=== PATIENT | male | born 1990 | race Caucasian/White ===

== ENCOUNTER 2017-09-17 23:34 | Emergency (ER) | payer MEDICAID ==
[2017-09-18 00:37] LABS: ANION GAP 12.4 mmol/L (8-16); APPEARANCE CLEAR (CLEAR); BILIRUBIN NEGATIVE (NEGATIVE); BILIRUBIN - TOTAL 0.19 mg/dL (0.2-1.3); CALCIUM 9.5 mg/dL (8.5-10.1); CARBON DIOXIDE 30.3 mmol/L (21.0-32.0); COLOR YELLOW (YELLOW); CREATININE - SERUM 1.3 mg/dL (0.6-1.3); GLUCOSE 1000 mg/dL (NEGATIVE); KETONE SMALL mg/dL (NEGATIVE); NITRITE NEGATIVE (NEGATIVE); POTASSIUM - SERUM 3.7 mmol/L (3.5-5.1); PROTEIN 3+ mg/dL (NEGATIVE); PROTEIN - SERUM 6.9 g/dL (6.4-8.2); SPECIFIC GRAVITY 1.015 (1.005-1.020); UROBILINOGEN NORMAL (NORMAL)
[2017-09-18 00:38] LABS: BASOPHILS 0.3 % (0-2); EOSINOPHILS 1.8 % (0-7); HEMATOCRIT 37.4 % (42.0-54.0); HEMOGLOBIN 13.4 g/dL (13.5-17.5); IMMATURE GRANULOCYTES 0.2 % (0-5); LYMPHOCYTES 50.9 % (15-50); MCH 31.4 pg (26.0-34.0); MCHC 35.8 g/dL (31.0-37.0); MCV 87.6 fL (80.0-100.0); MEAN PLATELET VOLUME 10.5 fL (7.4-10.4); MONOCYTES 5.4 % (2-11); NEUTROPHILS 41.4 % (40-80); RBC 4.27 10x6/uL (4.20-6.10); RDW 11.8 % (11.5-14.5); WBC 9.5 10x3/uL (4.8-10.8)
[2017-09-18 00:42] LABS: PLATELET COUNT 397 10x3/uL (130-400)
[2017-09-18 00:47] LABS: UDS - AMPHET POSITIVE QUAL (NEGATIVE); UDS - BARB NEGATIVE QUAL (NEGATIVE); UDS - BENZO NEGATIVE QUAL (NEGATIVE); UDS - COCAINE NEGATIVE QUAL (NEGATIVE); UDS - OPIATE NEGATIVE QUAL (NEGATIVE); UDS - PCP NEGATIVE QUAL (NEGATIVE); UDS - THC NEGATIVE QUAL (NEGATIVE)
== END 2017-09-18 01:15 | disposition home or self-care (01) ==
LOC: D.ER 23:34
PROVIDERS: Nurse Practitioner Family
DX: R11.2 Nausea with vomiting, unspecified (principal); R50.9 Fever, unspecified; M79.604 Pain in right leg; E11.9 Type 2 diabetes mellitus without complications; Z79.4 Long term (current) use of insulin

== ENCOUNTER 2018-06-25 18:24 | Emergency (ER) | payer MEDICAID ==
[~2018-06-25] VITALS: Ht 175.3 cm; Wt 68.2 kg
[2018-06-25 19:08] VITALS: Ht 175.3 cm; Wt 68.2 kg
[2018-06-25] MEDS ORDERED: HUMULIN R100 U/ML SC (19:09)
[2018-06-25] MEDS ORDERED: LEVEMIR100 U/M1 SC (19:10)
[2018-06-25 19:32] LABS: BASOPHILS 0.2 % (0-2); EOSINOPHILS 2.2 % (0-7); HEMATOCRIT 31.1 % (42.0-54.0); HEMOGLOBIN 10.7 g/dL (13.5-17.5); IMMATURE GRANULOCYTES 0.2 % (0-5); LYMPHOCYTES 21.2 % (15-50); MCHC 34.4 g/dL (31.0-37.0); MCV 87.1 fL (80.0-100.0); MEAN PLATELET VOLUME 9.4 fL (7.4-10.4); MONOCYTES 7.4 % (2-11); NEUTROPHILS 68.8 % (40-80); PLATELET COUNT 434 10x3/uL (130-400); RBC 3.57 10x6/uL (4.20-6.10); RDW 12.3 % (11.5-14.5); WBC 13.7 10x3/uL (4.8-10.8)
[2018-06-25 19:48] LABS: ALBUMIN 2.4 g/dL (3.4-5.0); ALKALINE PHOSPHATASE 97 U/L (46-116); ALT (SGPT) 18 U/L (10-68); BILIRUBIN - TOTAL 0.16 mg/dL (0.2-1.3); CALC OSMOLALITY 276 mosm/kg (275-300); CALCIUM 8.1 mg/dL (8.5-10.1); CARBON DIOXIDE 27.2 mmol/L (21.0-32.0); CHLORIDE - SERUM 104 mmol/L (98-107); PROTEIN - SERUM 6.2 g/dL (6.4-8.2); SODIUM 135 mmol/L (136-145); UREA NITROGEN 14 mg/dL (7-18); eGFR NON AFRICAN AMERICAN > 90 mL/min (90-120)
[2018-06-25 19:51] LABS: GLUCOSE 210 mg/dL (74-106)
[2018-06-25 20:12] LABS: APPEARANCE HAZY (CLEAR); BILIRUBIN NEGATIVE (NEGATIVE); COLOR YELLOW (YELLOW); GLUCOSE 100 mg/dL (NEGATIVE); KETONE NEGATIVE (NEGATIVE); NITRITE POSITIVE (NEGATIVE); PROTEIN 2+ mg/dL (NEGATIVE); SPECIFIC GRAVITY 1.015 (1.005-1.020); UROBILINOGEN NORMAL (NORMAL)
[2018-06-25 20:14] LABS: RED CELLS - URINE 0-5 /hpf (0-5); WHITE CELLS - URINE >50 /hpf (0-5)
[2018-06-25 20:15] LABS: BACTERIA MODERATE /hpf (NONE SEEN); EPITHELIAL CELLS 0-5 /hpf (0-5)
[2018-06-25] MEDS ORDERED: OMNICEF300 MG PO (23:11)
[2018-06-25] MEDS ORDERED: ZOFRAN ODT4 MG/UDTAB PO (23:11)
[2018-06-26 00:17] VITALS: BP 126/76
[2018-07-28 10:25] VITALS: Ht 175.3 cm; Wt 68.2 kg
== END 2018-06-26 00:18 | disposition home or self-care (01) ==
LOC: D.ER 18:24
PROVIDERS: Family Medicine
DX: N39.0 Urinary tract infection, site not specified (principal); E11.65 Type 2 diabetes mellitus with hyperglycemia; Z79.4 Long term (current) use of insulin; R19.7 Diarrhea, unspecified

== ENCOUNTER 2018-07-28 07:10 | Inpatient (IN) | payer MEDICAID ==
[~2018-07-28] VITALS: Ht 175.3 cm; Wt 76.9 kg
[2018-07-28] VITALS (22 sets, daily range): BP systolic 101–151; BP diastolic 54–96; BMI 22.5
--- NOTE | ~2018-07-28 | HEMODYNAMI ---
PATIENT:STEPAN THOMAS MEDICAL RECORD: [id number] : [birth year] LOC[address] [id number] ADMISSION DATE: 07/28/18 Generatedon:08/03/201814:25 Patient name: STEPAN THOMAS Patient #: [id number] SSN: : 1990 Date of study: 08/03/2018 Page: Of Hemodynamic Procedure Report Patient Data Patient Demographics Procedure consent was obtained First Name: STEPAN Gender: Male Last Name: MARTHA : 1990 Patient #: [id number] Age: 28 year(s) Race: Unknown Additional ID: [id number] Contact details Address: [address] [place] [address] State: [place] City: [facility] Zip code: [address] Admission Admission Data Admission Date: 07/28/2018 Admission Time: 9:21 Room #: 2105 Procedure Procedure Types Cath Procedure Diagnostic Procedure MECHELLE Procedure Description Procedure Date Procedure Date: 08/03/2018 Procedure Start Time: 14:09 Procedure End Time: 14:16 Procedure Staff Name Function Osvaldo Piedra MD Performing Physician Yola Kuo RT Monitor Melissa Mo RT Scrub Sandro Barron RN Nurse Sophia Mcdaniel Binder Stripper Hand Jan Kwan MD Additional personnel Procedure Data Cath Procedure Fluoroscopy Diagnostic fluoroscopy Total fluoroscopy Time: 0 time: 0 min min Diagnostic fluoroscopy Total fluoroscopy dose: 0 dose: 0 mGy mGy Contrast Material Contrast Material Type Amount (ml) Isovue 300 0 Estimated blood loss: 0 ml Procedure Complications No complications Procedure Medications Medication Administration Route Dosage 0.9% NaCl I.V. 100 ml/hr Oxygen etCO2 Nasal cannula 4 l/min unlisted medication added to field 20 ml unlisted medication P.O. 20 ml Refer to Anesthesia Notes for Sedation Medications Hemodynamics Rest Heart Rate: 90 (bpm) Snapshots Pre Cath Intra NCS Post Cath Vital Signs Time Heart Resp SPO2 etCO2 NIBP (mmHg) Rhythm Pain Sedation Rate (ipm) (%) (mmHg) Status Level (bpm) 13:55:13 88 11 96 0 122/92(105) NSR 0 (11) 10(A) , No pain 13:59:16 86 10 99 39.2 125/86(105) NSR 0 (11) 10(A) , No pain 14:03:20 86 19 99 39.2 124/87(100) NSR 0 (11) 10(A) , No pain 14:07:22 87 27 99 39.2 122/88(105) NSR 0 (11) 9(A) , No pain 14:11:25 86 19 99 0 106/78(86) NSR 0 (11) 9(A) , No pain 14:15:27 76 13 97 41.4 104/68(85) NSR 0 (11) 9(A) , No pain 14:18:21 75 15 97 39.1 96/69(82) NSR 0 (11) 9(A) , No pain 14:19:51 76 16 97 39.9 96/67(81) NSR 0 (11) 9(A) , No pain 14:23:06 75 12 98 39.1 99/74(84) NSR 0 (11) 9(A) , No pain Medications Time Medication Route Dose Verified Delivered Reason Notes Effectiv eness by by 13:58:59 0.9% NaCl I.V. 100 Sandro Sandro Per ml/hr Anderson Barron physician RN RN 13:59:12 Oxygen etCO2 4 Sandro Sandro Per Nasal l/min Anderson Barron physician cannula RN RN 14:01:18 viscous added 20 ml Sandro Sandro for local lidocaine to Lorigan Lorigan anesthetic field RN RN 14:07:40 viscous P.O. 20 ml Sandro Sandro for local lidocaine Lorigan Lorigan anesthetic RN RN 14:10:14 Refer to Sandro Sandro for Anesthesia Lorigan Lorigan sedation Notes for RN RN Sedation Medications Procedure Log Time Note 13:43:49 Melissa CHAPIN(R) sent for patient. Start room use. 13:43:49 Time tracking: Regular hours (M-F 7:00 - 5:00) 13:43:54 Plan of Care:Hemodynamics will remain stable., Cardiac rhythm will remain stable., Comfort level will be maintained., Respiratory function will remain adequate., Patient/ family verbilizes understanding of procedure., Procedure tolerated without complication., Recovers from procedure without complications.. 13:50:28 Patient received from Med II to CCL 2 Alert and oriented. Tansferred to table in Supine position. 13:50:32 Warm blankets applied, and taryn hugger turned on for patient comfort. 13:50:32 Correct patient and procedure confirmed by team. 13:50:34 Signed procedure consent form obtained from patient. 13:50:35 ECG and BP/O2 sat monitors applied to patient. 13:54:11 Vital chart was started 13:54:13 Baseline sample Acquired. 13:54:17 Rhythm: sinus tachycardia 13:54:18 Full Disclosure recording started 13:54:22 H&P Date Dictated: 08/03/2018 New H&P dictated by physician.. 13:54:23 Pre-procedure instructions explained to patient. 13:54:24 Pre-op teaching completed and patient verbalized understanding. 13:54:25 Family in waiting room. 13:54:28 Patient NPO since Midnight. 13:54:29 Is the patient allergic to Iodine/contrast media? No. 13:54:30 Was the patient premedicated? No 13:56:29 Is patient on blood thinner?No 13:56:33 Patient diabetic? Yes. 13:56:40 If diabetic: On Metformin? No 13:56:49 Previous problem with sedation/anesthesia? No ? 13:56:54 Snore? No 13:56:55 Sleep apnea? No 13:56:57 Deviated septum? No 13:56:58 Opens mouth fully? Yes 13:56:59 Sticks out tongue? Yes 13:58:07 Airway obstruction? No ? 13:58:10 Dentures? No ? 13:58:51 IV patent on arrival in right antecubital with 0.9% NaCl at [facility]. 13:58:53 Lab results completed and on chart. 13:58:57 Alarms reviewed by R. N. 13:58:58 Sharps counted by scrub and verified by R.N. 13:58:59 0.9% NaCl 100 ml/hr I.V. was administered by Sandro Barron RN; Per physician; 13:59:12 Oxygen 4 l/min etCO2 Nasal cannula was administered by Sandro Barron RN; Per physician; 13:59:43 Sophia Gardena Statistical Consultant present for MECHELLE. 14:01:18 viscous lidocaine 20 ml added to field was administered by Sandro Barron RN; for local anesthetic; 14:01:20 Jan Kwan MD present and monitoring patient for TIVA. 14:07:40 viscous lidocaine 20 ml P.O. was administered by Sandro Barron RN; for local anesthetic; 14::57 Physician arrived 14::57 --------ALL STOP TIME OUT------ 14::58 Final Timeout: patient, procedure, and site verified with staff and physician. All members of the team are in agreement. 14::58 Physical assessment completed. ASA score P 2 - A patient with mild systemic disease as per Osvaldo Piedra MD. 14:09:30 Procedure started. 14:09:31 MECHELLE started. 14:10:06 Sedation plan: TIVA Medication:Propofol 14:10:14 Refer to Anesthesia Notes for Sedation Medications was administered by Sandro Barron RN; for sedation; 14:14:51 MECHELLE completed. 14:15:31 Procedure ended.(Physican Out) 14:15:41 Fluoroscopy time 00.00 minutes. 14:15:43 Fluoroscopy dose: 0 mGy 14:15:43 Flurop Dose total: 0 14:15:52 Contrast amount:Isovue 300 0ml. 14:15:54 Sharps counted by scrub and verified by R.N. 14:15:55 Insertion/operative site no bleeding no hematoma. 14:15:58 Post Procedure Pulses reassessed and unchanged 14:16:01 Post procedure rhythm: unchanged. 14:16:08 Estimated blood loss: 0 ml 14:16:12 Post procedure instruction explained to patient.Patient verbalizes understanding. 14:16:13 Patient needs reinforcement of post procedure teaching. 14:16:21 Procedure and supply charges have been captured, reviewed, submitted and are correct. 14:16:27 Procedure Complication : No complications 14:16:30 Vital chart was stopped 14:16:30 See physician's report for complete and final results. 14:16:36 Report given to Med II. 14:16:38 Patient transfered to Med II with Stretcher. 14:16:40 Procedure ended. 14:16:40 Full Disclosure recording stopped 14:16:43 End room use (Document Last) Signature Audit Vallecitos Stage Time Signature Unsigned Intra-Procedure 08/03/2018 Yola Kuo 2:25:47 PM RT(R) Signatures Monitor : Yola Kuo RT Signature : Date : Time : [address] [place] [address]
--- NOTE | ~2018-07-28 | OP ---
PATIENT NAME: STEPAN THOMAS MEDICAL RECORD: [id number] :[birth year] LOCATION:D.M2 D.2105 ADMISSION DATE:07/28/18 SURGEON: MYLA GONZALEZ MD DATE OF OPERATION: 08/03/2018 After general anesthesia via TIVA via anesthesia, transesophageal Omniplane probe was placed in the distal esophagus and proximal stomach without difficulty. FINDINGS: No LVH. LV internal dimension is normal. Wall motion is normal. EF is greater than or equal to 55%. Aortic valve is well visualized, this is tricuspid. No AI. Good valve excursion. Left atrium is well visualized, this normal size. Left atrial appendage is well visualized with good contractility. No evidence of thrombus. Mitral valve: Mitral valve shows prolapse of the anterior leaflet; however, no evidence of vegetation and no significant MR. Right-sided chambers are grossly normal. Tricuspid valve is well visualized. IMPRESSION: No evidence of vegetations and trivial TR. TRANSINT:[id number] Voice Confirmation ID: [id number] DOCUMENT ID: [id number] MYLA GONZALEZ MD at 1305 CC: [id number] DICTATION DATE: 08/03/18 1422 RESERVOIR ENGINEERING MANAGER: 08/03/18 1512 DIS IN 08/03/18 [place] [id number] [place] [address]
[~2018-07-28 07:10] MED LIST: HUMULIN R100 U/ML SC; LEVEMIR100 U/M1 SC; OMNICEF300 MG PO; ZOFRAN ODT4 MG/UDTAB PO
[2018-07-28 07:50] LABS: BASOPHILS 0.7 % (0-2); EOSINOPHILS 0.4 % (0-7); HEMOGLOBIN 13.3 g/dL (13.5-17.5); IMMATURE GRANULOCYTES 0.3 % (0-5); LYMPHOCYTES 34.7 % (15-50); MCH 30.2 pg (26.0-34.0); MCHC 34.1 g/dL (31.0-37.0); MCV 88.4 fL (80.0-100.0); MONOCYTES 2.5 % (2-11); NEUTROPHILS 61.4 % (40-80); PLATELET COUNT 344 10x3/uL (130-400); RBC 4.41 10x6/uL (4.20-6.10); WBC 7.7 10x3/uL (4.8-10.8)
[2018-07-28 07:51] LABS: KETONE - SERUM SMALL mg/dL (NEGATIVE)
[2018-07-28 08:01] LABS: ALKALINE PHOSPHATASE 105 U/L (46-116); ALT (SGPT) 24 U/L (10-68); BILIRUBIN - TOTAL 0.79 mg/dL (0.2-1.3); CALCIUM 9.2 mg/dL (8.5-10.1); CHLORIDE - SERUM 86 mmol/L (98-107); CREATININE - SERUM 1.9 mg/dL (0.6-1.3); MAGNESIUM - SERUM 2.6 mg/dL (1.8-2.4); POTASSIUM - SERUM 5.9 mmol/L (3.5-5.1); PROTEIN - SERUM 7.1 g/dL (6.4-8.2); SODIUM 127 mmol/L (136-145); UREA NITROGEN 36 mg/dL (7-18); eGFR NON AFRICAN AMERICAN 45 mL/min (90-120)
[2018-07-28 08:03] LABS: CALC OSMOLALITY 296 mosm/kg (275-300)
[2018-07-28 08:04] LABS: GLUCOSE 708 mg/dL (74-106)
[2018-07-28 09:54] LABS: APPEARANCE CLEAR (CLEAR); BILIRUBIN NEGATIVE (NEGATIVE); COLOR STRAW (YELLOW); GLUCOSE 1000 mg/dL (NEGATIVE); KETONE MODERATE mg/dL (NEGATIVE); NITRITE NEGATIVE (NEGATIVE); PROTEIN TRACE mg/dL (NEGATIVE); UROBILINOGEN NORMAL (NORMAL)
[2018-07-28 10:05] LABS: BACTERIA FEW /hpf (NONE SEEN); EPITHELIAL CELLS RARE /hpf (0-5); RED CELLS - URINE RARE /hpf (0-5); WHITE CELLS - URINE RARE /hpf (0-5)
[2018-07-28] MEDS ORDERED: CELEXA40 MG PO (10:32)
[2018-07-28] MEDS ORDERED: DEPAKOTE250 MG (10:32)
[2018-07-28 18:30] LABS: UDS - AMPHET NEGATIVE QUAL (NEGATIVE); UDS - BARB NEGATIVE QUAL (NEGATIVE); UDS - BENZO NEGATIVE QUAL (NEGATIVE); UDS - COCAINE NEGATIVE QUAL (NEGATIVE); UDS - OPIATE NEGATIVE QUAL (NEGATIVE); UDS - PCP NEGATIVE QUAL (NEGATIVE); UDS - THC NEGATIVE QUAL (NEGATIVE)
[2018-07-29] VITALS (43 sets, daily range): BP systolic 74–151; BP diastolic 48–103; BMI 25.1
[2018-07-29 04:01] LABS: BASOPHILS 0.1 % (0-2); EOSINOPHILS 4.3 % (0-7); HEMATOCRIT 31.3 % (42.0-54.0); HEMOGLOBIN 11.1 g/dL (13.5-17.5); IMMATURE GRANULOCYTES 0.1 % (0-5); LYMPHOCYTES 42.9 % (15-50); MCH 29.7 pg (26.0-34.0); MCHC 35.5 g/dL (31.0-37.0); MCV 83.7 fL (80.0-100.0); MEAN PLATELET VOLUME 9.9 fL (7.4-10.4); MONOCYTES 7.7 % (2-11); NEUTROPHILS 44.9 % (40-80); PLATELET COUNT 267 10x3/uL (130-400); RBC 3.74 10x6/uL (4.20-6.10); RDW 12.1 % (11.5-14.5); WBC 8.2 10x3/uL (4.8-10.8)
[2018-07-29 04:19] LABS: ALBUMIN 2.3 g/dL (3.4-5.0); ALKALINE PHOSPHATASE 78 U/L (46-116); ALT (SGPT) 19 U/L (10-68); BILIRUBIN - TOTAL 0.13 mg/dL (0.2-1.3); CALC OSMOLALITY 280 mosm/kg (275-300); CALCIUM 7.9 mg/dL (8.5-10.1); CARBON DIOXIDE 26.8 mmol/L (21.0-32.0); CHLORIDE - SERUM 105 mmol/L (98-107); CREATININE - SERUM 1.2 mg/dL (0.6-1.3); GLUCOSE 130 mg/dL (74-106); POTASSIUM - SERUM 3.5 mmol/L (3.5-5.1); PROTEIN - SERUM 5.5 g/dL (6.4-8.2); SODIUM 139 mmol/L (136-145); UREA NITROGEN 16 mg/dL (7-18); eGFR NON AFRICAN AMERICAN 76 mL/min (90-120)
[2018-07-29] MEDS ORDERED: DEPAKOTE ER500 MG PO (09:03)
[2018-07-29] MEDS ORDERED: LISINOPRIL5 MG PO (09:03)
[2018-07-29 10:42] LABS: APPEARANCE CLEAR (CLEAR); BILIRUBIN NEGATIVE (NEGATIVE); COLOR YELLOW (YELLOW); GLUCOSE 250 mg/dL (NEGATIVE); KETONE NEGATIVE (NEGATIVE); NITRITE NEGATIVE (NEGATIVE); PROTEIN 1+ mg/dL (NEGATIVE); UROBILINOGEN NORMAL (NORMAL)
[2018-07-29 10:48] LABS: BACTERIA FEW /hpf (NONE SEEN); EPITHELIAL CELLS RARE /hpf (0-5); RED CELLS - URINE 0-5 /hpf (0-5); WHITE CELLS - URINE RARE /hpf (0-5)
[2018-07-30] VITALS (23 sets, daily range): BP systolic 89–156; BP diastolic 54–105
[2018-07-31 04:00] VITALS: BP 141/97
[2018-07-31 08:04] VITALS: BP 112/83
[2018-07-31 08:47] VITALS: Ht 175.3 cm; Wt 76.9 kg
[2018-07-31 10:58] VITALS: BP 122/82
[2018-07-31 15:24] VITALS: BP 165/88
[2018-07-31 21:04] VITALS: BP 121/87
[2018-08-01 05:22] LABS: BASOPHILS 0.6 % (0-2); EOSINOPHILS 11.3 % (0-7); HEMATOCRIT 35.3 % (42.0-54.0); HEMOGLOBIN 11.9 g/dL (13.5-17.5); IMMATURE GRANULOCYTES 0.1 % (0-5); LYMPHOCYTES 54.3 % (15-50); MCH 29.5 pg (26.0-34.0); MCHC 33.7 g/dL (31.0-37.0); MCV 87.4 fL (80.0-100.0); MEAN PLATELET VOLUME 10.7 fL (7.4-10.4); MONOCYTES 8.4 % (2-11); NEUTROPHILS 25.3 % (40-80); RBC 4.04 10x6/uL (4.20-6.10); RDW 12.3 % (11.5-14.5); WBC 7.3 10x3/uL (4.8-10.8)
[2018-08-01 05:24] LABS: PLATELET COUNT 206 10x3/uL (130-400)
[2018-08-01 05:27] LABS: CALC OSMOLALITY 281 mosm/kg (275-300); CALCIUM 8.7 mg/dL (8.5-10.1); CARBON DIOXIDE 29.3 mmol/L (21.0-32.0); CHLORIDE - SERUM 107 mmol/L (98-107); GLUCOSE 92 mg/dL (74-106); POTASSIUM - SERUM 4.1 mmol/L (3.5-5.1); SODIUM 140 mmol/L (136-145); UREA NITROGEN 21 mg/dL (7-18); eGFR NON AFRICAN AMERICAN > 90 mL/min (90-120)
[2018-08-01 05:48] VITALS: BP 119/81
[2018-08-01 20:29] VITALS: BP 126/90
[2018-08-02 05:16] VITALS: BP 112/74
[2018-08-02 05:27] LABS: BASOPHILS 0.6 % (0-2); EOSINOPHILS 8.7 % (0-7); HEMATOCRIT 32.6 % (42.0-54.0); IMMATURE GRANULOCYTES 0.3 % (0-5); LYMPHOCYTES 41.5 % (15-50); MCH 29.6 pg (26.0-34.0); MCHC 33.7 g/dL (31.0-37.0); MCV 87.6 fL (80.0-100.0); MEAN PLATELET VOLUME 11.1 fL (7.4-10.4); MONOCYTES 9.3 % (2-11); NEUTROPHILS 39.6 % (40-80); PLATELET COUNT 229 10x3/uL (130-400); RBC 3.72 10x6/uL (4.20-6.10); RDW 12.3 % (11.5-14.5); WBC 7.7 10x3/uL (4.8-10.8)
[2018-08-02 05:39] LABS: CALC OSMOLALITY 288 mosm/kg (275-300); CALCIUM 8.6 mg/dL (8.5-10.1); CARBON DIOXIDE 25.6 mmol/L (21.0-32.0); CHLORIDE - SERUM 104 mmol/L (98-107); CREATININE - SERUM 1.2 mg/dL (0.6-1.3); SODIUM 138 mmol/L (136-145); UREA NITROGEN 24 mg/dL (7-18); eGFR NON AFRICAN AMERICAN 76 mL/min (90-120)
[2018-08-02 05:40] LABS: GLUCOSE 261 mg/dL (74-106)
[2018-08-02 08:23] VITALS: BP 117/83
[2018-08-02 11:43] VITALS: BP 118/75
[2018-08-02 15:21] VITALS: BP 95/62
[2018-08-02 20:00] VITALS: BP 134/94
[2018-08-03 00:56] VITALS: BP 125/85
[2018-08-03 04:00] VITALS: BP 138/84
[2018-08-03 05:19] LABS: BASOPHILS 0.7 % (0-2); EOSINOPHILS 8.9 % (0-7); HEMATOCRIT 35.3 % (42.0-54.0); HEMOGLOBIN 12.3 g/dL (13.5-17.5); IMMATURE GRANULOCYTES 0.2 % (0-5); LYMPHOCYTES 53.2 % (15-50); MCH 30.1 pg (26.0-34.0); MCHC 34.8 g/dL (31.0-37.0); MCV 86.5 fL (80.0-100.0); MEAN PLATELET VOLUME 10.2 fL (7.4-10.4); MONOCYTES 7.5 % (2-11); NEUTROPHILS 29.5 % (40-80); RBC 4.08 10x6/uL (4.20-6.10); RDW 12.3 % (11.5-14.5); WBC 8.6 10x3/uL (4.8-10.8)
[2018-08-03 05:23] LABS: PLATELET COUNT 306 10x3/uL (130-400)
[2018-08-03 05:30] LABS: CALC OSMOLALITY 281 mosm/kg (275-300); CALCIUM 9.1 mg/dL (8.5-10.1); CARBON DIOXIDE 30.3 mmol/L (21.0-32.0); CHLORIDE - SERUM 105 mmol/L (98-107); POTASSIUM - SERUM 3.9 mmol/L (3.5-5.1); SODIUM 140 mmol/L (136-145); UREA NITROGEN 26 mg/dL (7-18); eGFR NON AFRICAN AMERICAN > 90 mL/min (90-120)
[2018-08-03 05:32] LABS: GLUCOSE 58 mg/dL (74-106)
[2018-08-03 08:38] VITALS: BP 95/62
[2018-08-03 12:15] VITALS: BP 116/79
== END 2018-08-03 18:39 | disposition home or self-care (01) | DRG 871 ==
LOC: D.ER 07:10 → D.ICU 09:21 → D.EDHOLD 09:21 → D.M2 09:21 → D.ICU 09:47 → D.M2 07-30 15:48
PROVIDERS: Emergency Medicine; Internal Medicine Nephrology
DX: A41.9 Sepsis, unspecified organism (principal); E10.10 Type 1 diabetes mellitus with ketoacidosis without coma; N17.9 Acute kidney failure, unspecified; Z79.4 Long term (current) use of insulin; F15.10 Other stimulant abuse, uncomplicated; D50.9 Iron deficiency anemia, unspecified

== ENCOUNTER 2018-09-12 01:53 | Inpatient (IN) | payer MEDICAID ==
[2018-09-12] VITALS (20 sets, daily range): BP systolic 98–131; BP diastolic 63–90; Ht 175.3 cm; Wt 73.6 kg
[~2018-09-12] VITALS: Ht 175.3 cm; Wt 73.6 kg
--- NOTE | ~2018-09-12 | MORECARE ---
CASE MANAGEMENT DISCHARGE SUMMARY PATIENT: STEPAN RUSHING UNIT: [id number] ADM DATE: 09/12/18 AGE: 28 : [birth year] SEX: M ROOM/BED: D.1211 AUTHOR: YOSELIN PRETTY PHYSICIAN: REFERRING PHYSICIAN: СВЕТЛАНА LORA MD DATE OF SERVICE: 09/14/18 Discharge Plan Patient Name: STEPAN RUSHING Facility: [facility]:[place] : 1990 Planned Disposition: Inpatient Rehab Facility Anticipated Discharge Date: Discharge Date: Expected LOS: Initial Reviewer: [email or web address] Initial Review Date: 09/14/2018 Generated: 09/14/18 1:23 pm Comments DCP- Discharge Planning Updated by [email or web address]: Valeria Bobby on 09/14/18 11:[address] Patient Name: STEPAN RUSHING Admission Status: ER Accout number: [id number] Admission Date: 09-12-2018 : 1990 Admission Diagnosis: Attending: СВЕТЛАНА LORA Current LOS: 2 Anticipated DC Date: Planned Disposition: Inpatient Rehab Facility Primary Insurance: [employer]VT OPTIONS FLAQUITO Discharge Planning Comments: CM met with patient at bedside. Patient states he plans to return to the [facility] in which he was in prior to admission. ([facility]) [address], [place]. Patient requested an excuse letter for his place of employment stating he was admitted to the hospital. CM gave patient work excuse letter. Patient denies any other needs at this time. CM will continue to follow and assist with discharge planning / needs. Auditor Internal: Valeria Bobby DCPIA - Discharge Planning Initial Assessment Updated by [email or web address]: Valeria Bobby on 09/14/18 12:11 pm * Is the patient Alert and Oriented? Yes * How many steps to enter\exit or inside your home? * Preadmission Environment Longterm * Facility Name [facility] * ADLs Independent * Equipment None * List name and contact numbers for known caregivers / representatives who currently or will assist patient after discharge: Tatianna Peterson [phone] friend * Verbal permission to speak to the caregivers and representatives has been obtained from the patient. Yes * Community resources currently utilized None * Additional services required to return to the preadmission environment? No * Can the patient safely return to the preadmission environment? Yes * Has this patient been hospitalized within the prior 30 days at any hospital? No Last DP export: 09/14/18 11:16 Patient Name: STEPAN RUSHING Page 14496 at 1223 All edits/amendments must be made on the electronic document DICTATION DATE: 09/14/181222 RADIOTELEPHONE OPERATOR: CARO 09/14/181222 RPT#: [id number] DC DATE: STATUS: ADM IN [facility] [address] [place] [address] END OF REPORT
--- NOTE | ~2018-09-12 | MORECARE ---
CASE MANAGEMENT DISCHARGE SUMMARY PATIENT: STEPAN RUSHING N UNIT: [id number] ADM DATE: 09/12/18 AGE: 28 : [birth year] SEX: M ROOM/BED: D.1211 AUTHOR: YOSELIN PRETTY PHYSICIAN: REFERRING PHYSICIAN: СВЕТЛАНА LORA MD DATE OF SERVICE: 09/14/18 Discharge Plan Patient Name: STEPAN RUSHING Facility: [facility]:[place] : 1990 Planned Disposition: Inpatient Rehab Facility Anticipated Discharge Date: Discharge Date: Expected LOS: Initial Reviewer: [email or web address] Initial Review Date: 09/14/2018 Generated: 09/14/18 1:15 pm DCPIA - Discharge Planning Initial Assessment Updated by [email or web address]: Valeria Bobby on 09/14/18 12:11 pm * Is the patient Alert and Oriented? Yes * How many steps to enter\exit or inside your home? * Preadmission Environment Care Home * Facility Name [facility] * ADLs Independent * Equipment None * List name and contact numbers for known caregivers / representatives who currently or will assist patient after discharge: Tatianna Peterson [phone] friend * Verbal permission to speak to the caregivers and representatives has been obtained from the patient. Yes * Community resources currently utilized None * Additional services required to return to the preadmission environment? No * Can the patient safely return to the preadmission environment? Yes * Has this patient been hospitalized within the prior 30 days at any hospital? No Last DP export: 09/14/18 11:08 Patient Name: STEPAN RUSHING Page 92207 at 1216 All edits/amendments must be made on the electronic document DICTATION DATE: 09/14/18 1215 TEST PREPARATION TUTOR: CARO 09/14/18 1215 RPT#: [id number] DC DATE: STATUS: ADM IN [facility] [address] [place] [address] END OF REPORT
--- NOTE | ~2018-09-12 | MORECARE ---
CASE MANAGEMENT DISCHARGE SUMMARY PATIENT: STEPAN RUSHING UNIT: [id number] ADM DATE: 09/12/18 AGE: 28 : [birth year] SEX: M ROOM/BED: D.1211 AUTHOR: MARIA DE JESUSDOC PHYSICIAN: REFERRING PHYSICIAN: СВЕТЛАНА LORA MD DATE OF SERVICE: 09/14/18 Discharge Plan Patient Name: STEPAN RUSHING Facility: [facility]:[place] : 1990 Planned Disposition: Inpatient Rehab Facility Anticipated Discharge Date: Discharge Date: 09/14/2018 Expected LOS: Initial Reviewer: [email or web address] Initial Review Date: 09/14/2018 Generated: 09/14/18 6:52 pm Comments DCP- Discharge Planning Updated by [email or web address]: Valeria Bobby on 09/14/18 11:[address] Patient Name: STEPAN RUSHING Admission Status: ER Accout number: [id number] Admission Date: 09-12-2018 : 1990 Admission Diagnosis: Attending: СВЕТЛАНА LORA Current LOS: 2 Anticipated DC Date: Planned Disposition: Inpatient Rehab Facility Primary Insurance: [employer] PRVT OPTIONS FLAQUITO Discharge Planning Comments: CM met with patient at bedside. Patient states he plans to return to the [facility] in which he was in prior to admission. ([facility] [address], [place]. Patient requested an excuse letter for his place of employment stating he was admitted to the hospital. CM gave patient work excuse letter. Patient denies any other needs at this time. CM will continue to follow and assist with discharge planning / needs. Tool Room Supervisor: Valeria Bobby DCPIA - Discharge Planning Initial Assessment Updated by [email or web address]: Valeria Bobby on 09/14/18 12:11 pm * Is the patient Alert and Oriented? Yes * How many steps to enter\exit or inside your home? * Preadmission Environment Usp * Facility Name [facility] * ADLs Independent * Equipment None * List name and contact numbers for known caregivers / representatives who currently or will assist patient after discharge: Tatianna Peterson [phone] friend * Verbal permission to speak to the caregivers and representatives has been obtained from the patient. Yes * Community resources currently utilized None * Additional services required to return to the preadmission environment? No * Can the patient safely return to the preadmission environment? Yes * Has this patient been hospitalized within the prior 30 days at any hospital? No Last DP export: 09/14/18 11:23 Patient Name: STEPAN RUSHING Page [id number] at 1752 All edits/amendments must be made on the electronic document DICTATION DATE: 09/14/181751 TRAILER MECHANIC: CARO 09/14/181751 RPT#: [id number] DC DATE:09/14/18 STATUS: DIS IN [facility] [address] [place] [address] END OF REPORT
--- NOTE | ~2018-09-12 | MORECARE ---
CASE MANAGEMENT DISCHARGE SUMMARY PATIENT: STEPAN RUSHING N UNIT: [id number] ADM DATE: 09/12/18 AGE: 28 : [birth year] SEX: M ROOM/BED: D.1211 AUTHOR: YOSELIN PRETTY PHYSICIAN: REFERRING PHYSICIAN: СВЕТЛАНА LORA MD DATE OF SERVICE: 09/14/18 Discharge Plan Patient Name: STEPAN RUSHING Facility: [facility]:[place] : 1990 Planned Disposition: Inpatient Rehab Facility Anticipated Discharge Date: Discharge Date: Expected LOS: Initial Reviewer: [email or web address] Initial Review Date: 09/14/2018 Generated: 09/14/18 1:08 pm Patient Name: STEPAN RUSHING Page [id number] at 1208 All edits/amendments must be made on the electronic document DICTATION DATE: 09/14/18 1208 VOICE PROFESSOR: CARO 09/14/18 1208 RPT#: [id number] DC DATE: STATUS: ADM IN [facility] [address] [place] [address] END OF REPORT
[~2018-09-12 01:53] MED LIST changes: +CELEXA40 MG PO; +DEPAKOTE ER500 MG PO; +DEPAKOTE250 MG; +LISINOPRIL5 MG PO
[2018-09-12 02:40] LABS: BASOPHILS 0.4 % (0-2); EOSINOPHILS 0.9 % (0-7); HEMATOCRIT 37.1 % (42.0-54.0); IMMATURE GRANULOCYTES 0.3 % (0-5); LYMPHOCYTES 36.1 % (15-50); MCH 31.1 pg (26.0-34.0); MCHC 32.3 g/dL (31.0-37.0); MCV 96.1 fL (80.0-100.0); MEAN PLATELET VOLUME 11.3 fL (7.4-10.4); MONOCYTES 5.7 % (2-11); NEUTROPHILS 56.6 % (40-80); RBC 3.86 10x6/uL (4.20-6.10); RDW 13.7 % (11.5-14.5)
[2018-09-12 02:43] LABS: PLATELET COUNT 215 10x3/uL (130-400)
[2018-09-12 02:53] LABS: ALBUMIN 2.9 g/dL (3.4-5.0); ALKALINE PHOSPHATASE 90 U/L (46-116); ALT (SGPT) 22 U/L (10-68); BILIRUBIN - TOTAL 0.62 mg/dL (0.2-1.3); CALCIUM 8.8 mg/dL (8.5-10.1); CARBON DIOXIDE 10.8 mmol/L (21.0-32.0); CHLORIDE - SERUM 92 mmol/L (98-107); CREATININE - SERUM 2.2 mg/dL (0.6-1.3); POTASSIUM - SERUM 4.2 mmol/L (3.5-5.1); PROTEIN - SERUM 6.7 g/dL (6.4-8.2); SODIUM 130 mmol/L (136-145); UREA NITROGEN 36 mg/dL (7-18); eGFR NON AFRICAN AMERICAN 38 mL/min (90-120)
[2018-09-12 02:55] LABS: KETONE - SERUM MODERATE mg/dL (NEGATIVE)
[2018-09-12 02:56] LABS: CALC OSMOLALITY 308 mosm/kg (275-300); GLUCOSE 811 mg/dL (74-106)
[2018-09-12 03:01] LABS: LIPASE 70 U/L (73-393); PRO BNP 550 pg/mL (0-125); VALPROIC ACID (DEPAKOTE) 54.8 ug/mL (50.0-100.0)
[2018-09-12 03:02] LABS: TROPONIN-I < 0.017 ng/mL (0.000-0.060)
[2018-09-12 03:09] LABS: APPEARANCE CLEAR (CLEAR); BILIRUBIN NEGATIVE (NEGATIVE); COLOR YELLOW (YELLOW); GLUCOSE 1000 mg/dL (NEGATIVE); KETONE LARGE mg/dL (NEGATIVE); NITRITE NEGATIVE (NEGATIVE); PROTEIN NEGATIVE (NEGATIVE); UROBILINOGEN NORMAL (NORMAL)
[2018-09-12 03:16] LABS: UDS - AMPHET NEGATIVE QUAL (NEGATIVE); UDS - BARB NEGATIVE QUAL (NEGATIVE); UDS - BENZO NEGATIVE QUAL (NEGATIVE); UDS - COCAINE NEGATIVE QUAL (NEGATIVE); UDS - OPIATE NEGATIVE QUAL (NEGATIVE); UDS - PCP NEGATIVE QUAL (NEGATIVE); UDS - THC NEGATIVE QUAL (NEGATIVE)
[2018-09-12 09:41] LABS: ALBUMIN 2.5 g/dL (3.4-5.0); BILIRUBIN - TOTAL 0.19 mg/dL (0.2-1.3); CALCIUM 8.2 mg/dL (8.5-10.1); PROTEIN - SERUM 5.6 g/dL (6.4-8.2)
[2018-09-12 09:44] LABS: ANION GAP 9.2 mmol/L (8-16); CARBON DIOXIDE 29.2 mmol/L (21.0-32.0); CREATININE - SERUM 1.6 mg/dL (0.6-1.3); POTASSIUM - SERUM 3.4 mmol/L (3.5-5.1)
[2018-09-12 12:23] LABS: ALBUMIN 2.4 g/dL (3.4-5.0); ANION GAP 15.7 mmol/L (8-16); BILIRUBIN - TOTAL 0.26 mg/dL (0.2-1.3); CALCIUM 7.9 mg/dL (8.5-10.1); CARBON DIOXIDE 25.4 mmol/L (21.0-32.0); CREATININE - SERUM 1.4 mg/dL (0.6-1.3); POTASSIUM - SERUM 4.1 mmol/L (3.5-5.1); PROTEIN - SERUM 5.4 g/dL (6.4-8.2)
[2018-09-12 17:01] LABS: ALBUMIN 2.3 g/dL (3.4-5.0); ANION GAP 15.8 mmol/L (8-16); BILIRUBIN - TOTAL 0.25 mg/dL (0.2-1.3); CALCIUM 7.8 mg/dL (8.5-10.1); CARBON DIOXIDE 21.6 mmol/L (21.0-32.0); CREATININE - SERUM 1.6 mg/dL (0.6-1.3); POTASSIUM - SERUM 4.4 mmol/L (3.5-5.1); PROTEIN - SERUM 5.4 g/dL (6.4-8.2)
[2018-09-12 20:14] LABS: ALBUMIN 2.4 g/dL (3.4-5.0); BILIRUBIN - TOTAL 0.21 mg/dL (0.2-1.3); CALCIUM 8.4 mg/dL (8.5-10.1); CARBON DIOXIDE 28.9 mmol/L (21.0-32.0); CREATININE - SERUM 1.3 mg/dL (0.6-1.3); POTASSIUM - SERUM 3.9 mmol/L (3.5-5.1); PROTEIN - SERUM 5.7 g/dL (6.4-8.2)
[2018-09-13] VITALS (15 sets, daily range): BP systolic 108–149; BP diastolic 72–101
[2018-09-13 01:04] LABS: ALBUMIN 2.1 g/dL (3.4-5.0); ANION GAP 11.7 mmol/L (8-16); BILIRUBIN - TOTAL 0.16 mg/dL (0.2-1.3); CALCIUM 7.7 mg/dL (8.5-10.1); CARBON DIOXIDE 25.7 mmol/L (21.0-32.0); CREATININE - SERUM 1.3 mg/dL (0.6-1.3); POTASSIUM - SERUM 4.4 mmol/L (3.5-5.1); PROTEIN - SERUM 5.2 g/dL (6.4-8.2)
[2018-09-13 04:17] LABS: BASOPHILS 0.3 % (0-2); EOSINOPHILS 5.8 % (0-7); IMMATURE GRANULOCYTES 0.1 % (0-5); MCH 30.1 pg (26.0-34.0); MCHC 33.2 g/dL (31.0-37.0); MEAN PLATELET VOLUME 10.2 fL (7.4-10.4); MONOCYTES 6.5 % (2-11); NEUTROPHILS 34.3 % (40-80); PLATELET COUNT 236 10x3/uL (130-400); RBC 3.16 10x6/uL (4.20-6.10); RDW 14.3 % (11.5-14.5); WBC 7.1 10x3/uL (4.8-10.8)
[2018-09-13 04:18] LABS: HEMATOCRIT 28.6 % (42.0-54.0); HEMOGLOBIN 9.5 g/dL (13.5-17.5); MCV 90.5 fL (80.0-100.0)
[2018-09-13 04:31] LABS: ALBUMIN 2.1 g/dL (3.4-5.0); ALKALINE PHOSPHATASE 59 U/L (46-116); ALT (SGPT) 15 U/L (10-68); BILIRUBIN - TOTAL 0.13 mg/dL (0.2-1.3); CALC OSMOLALITY 283 mosm/kg (275-300); CALCIUM 8.2 mg/dL (8.5-10.1); CARBON DIOXIDE 26.3 mmol/L (21.0-32.0); CHLORIDE - SERUM 108 mmol/L (98-107); CREATININE - SERUM 1.1 mg/dL (0.6-1.3); GLUCOSE 146 mg/dL (74-106); PROTEIN - SERUM 5.1 g/dL (6.4-8.2); SODIUM 141 mmol/L (136-145); UREA NITROGEN 13 mg/dL (7-18); eGFR NON AFRICAN AMERICAN 84 mL/min (90-120)
[2018-09-13 09:05] LABS: ALBUMIN 2.4 g/dL (3.4-5.0); ALKALINE PHOSPHATASE 71 U/L (46-116); ALT (SGPT) 19 U/L (10-68); BILIRUBIN - TOTAL 0.16 mg/dL (0.2-1.3); CALC OSMOLALITY 282 mosm/kg (275-300); CALCIUM 8.5 mg/dL (8.5-10.1); CARBON DIOXIDE 24.8 mmol/L (21.0-32.0); CHLORIDE - SERUM 108 mmol/L (98-107); CREATININE - SERUM 1.1 mg/dL (0.6-1.3); GLUCOSE 146 mg/dL (74-106); POTASSIUM - SERUM 4.9 mmol/L (3.5-5.1); PROTEIN - SERUM 5.5 g/dL (6.4-8.2); SODIUM 141 mmol/L (136-145); UREA NITROGEN 11 mg/dL (7-18); eGFR NON AFRICAN AMERICAN 84 mL/min (90-120)
[2018-09-13 13:00] LABS: ALBUMIN 2.5 g/dL (3.4-5.0); ALKALINE PHOSPHATASE 69 U/L (46-116); ALT (SGPT) 19 U/L (10-68); BILIRUBIN - TOTAL 0.17 mg/dL (0.2-1.3); CALC OSMOLALITY 280 mosm/kg (275-300); CALCIUM 8.6 mg/dL (8.5-10.1); CARBON DIOXIDE 25.7 mmol/L (21.0-32.0); CHLORIDE - SERUM 106 mmol/L (98-107); CREATININE - SERUM 0.9 mg/dL (0.6-1.3); GLUCOSE 153 mg/dL (74-106); POTASSIUM - SERUM 4.5 mmol/L (3.5-5.1); PROTEIN - SERUM 5.9 g/dL (6.4-8.2); SODIUM 140 mmol/L (136-145); UREA NITROGEN 10 mg/dL (7-18); eGFR NON AFRICAN AMERICAN > 90 mL/min (90-120)
[2018-09-13 16:24] LABS: ALBUMIN 2.4 g/dL (3.4-5.0); ALKALINE PHOSPHATASE 68 U/L (46-116); ALT (SGPT) 21 U/L (10-68); BILIRUBIN - TOTAL 0.21 mg/dL (0.2-1.3); CALCIUM 8.6 mg/dL (8.5-10.1); CARBON DIOXIDE 25.4 mmol/L (21.0-32.0); CHLORIDE - SERUM 104 mmol/L (98-107); CREATININE - SERUM 0.9 mg/dL (0.6-1.3); POTASSIUM - SERUM 4.5 mmol/L (3.5-5.1); PROTEIN - SERUM 5.5 g/dL (6.4-8.2); SODIUM 137 mmol/L (136-145); UREA NITROGEN 11 mg/dL (7-18); eGFR NON AFRICAN AMERICAN > 90 mL/min (90-120)
[2018-09-13 16:25] LABS: CALC OSMOLALITY 279 mosm/kg (275-300); GLUCOSE 225 mg/dL (74-106)
[2018-09-13 20:25] LABS: ALBUMIN 2.2 g/dL (3.4-5.0); ALKALINE PHOSPHATASE 70 U/L (46-116); ALT (SGPT) 19 U/L (10-68); BILIRUBIN - TOTAL 0.15 mg/dL (0.2-1.3); CALC OSMOLALITY 282 mosm/kg (275-300); CALCIUM 8.4 mg/dL (8.5-10.1); CARBON DIOXIDE 26.1 mmol/L (21.0-32.0); CHLORIDE - SERUM 107 mmol/L (98-107); GLUCOSE 199 mg/dL (74-106); POTASSIUM - SERUM 4.5 mmol/L (3.5-5.1); PROTEIN - SERUM 5.4 g/dL (6.4-8.2); SODIUM 139 mmol/L (136-145); UREA NITROGEN 11 mg/dL (7-18); eGFR NON AFRICAN AMERICAN > 90 mL/min (90-120)
[2018-09-14 00:16] VITALS: BP 139/72
[2018-09-14 04:30] VITALS: BP 145/97
[2018-09-14 05:19] LABS: BASOPHILS 0.3 % (0-2); EOSINOPHILS 6.3 % (0-7); IMMATURE GRANULOCYTES 0.2 % (0-5); MCHC 34.4 g/dL (31.0-37.0); MCV 90.2 fL (80.0-100.0); MEAN PLATELET VOLUME 10.6 fL (7.4-10.4); MONOCYTES 8.4 % (2-11); NEUTROPHILS 28.8 % (40-80); PLATELET COUNT 192 10x3/uL (130-400); RBC 3.77 10x6/uL (4.20-6.10); WBC 5.7 10x3/uL (4.8-10.8)
[2018-09-14 05:37] LABS: CALC OSMOLALITY 273 mosm/kg (275-300); CALCIUM 8.8 mg/dL (8.5-10.1); CARBON DIOXIDE 25.1 mmol/L (21.0-32.0); CHLORIDE - SERUM 103 mmol/L (98-107); CREATININE - SERUM 0.9 mg/dL (0.6-1.3); SODIUM 138 mmol/L (136-145); UREA NITROGEN 10 mg/dL (7-18); eGFR NON AFRICAN AMERICAN > 90 mL/min (90-120)
[2018-09-14 05:47] LABS: HEMOGLOBIN 11.7 g/dL (13.5-17.5)
[2018-09-14 05:51] LABS: GLUCOSE 73 mg/dL (74-106)
[2018-09-14 07:45] VITALS: BP 149/96
[2018-09-14] MEDS ORDERED: LEVAQUIN750 MG PO (10:44)
[2018-09-14 11:12] VITALS: BP 134/92
== END 2018-09-14 13:27 | disposition home or self-care (01) | DRG 638 ==
LOC: D.ER 01:53 → D.ICU 03:14 → D.EDHOLD 03:14 → D.ICU 04:04 → D.M3 09-13 18:09
PROVIDERS: Family Medicine; Internal Medicine Nephrology
DX: E10.10 Type 1 diabetes mellitus with ketoacidosis without coma (principal); N17.9 Acute kidney failure, unspecified; Z79.4 Long term (current) use of insulin; F32.9 Major depressive disorder, single episode, unspecified; J20.9 Acute bronchitis, unspecified; E87.6 Hypokalemia; D50.9 Iron deficiency anemia, unspecified; F15.10 Other stimulant abuse, uncomplicated; K02.9 Dental caries, unspecified

== ENCOUNTER 2018-10-07 11:50 | Emergency (ER) | payer MEDICAID ==
[~2018-10-07] VITALS: Ht 175.3 cm; Wt 63.6 kg
[~2018-10-07 11:50] MED LIST changes: +LEVAQUIN750 MG PO
[2018-10-07 11:57] VITALS: Ht 175.3 cm; Wt 63.6 kg
[2018-10-07 12:59] LABS: BASOPHILS 0.2 % (0-2); EOSINOPHILS 12.2 % (0-7); HEMATOCRIT 30.3 % (42.0-54.0); HEMOGLOBIN 10.1 g/dL (13.5-17.5); IMMATURE GRANULOCYTES 0.2 % (0-5); MCH 31.8 pg (26.0-34.0); MCHC 33.3 g/dL (31.0-37.0); MCV 95.3 fL (80.0-100.0); MEAN PLATELET VOLUME 10.1 fL (7.4-10.4); MONOCYTES 7.2 % (2-11); NEUTROPHILS 65.2 % (40-80); RBC 3.18 10x6/uL (4.20-6.10); RDW 13.6 % (11.5-14.5); WBC 8.9 10x3/uL (4.8-10.8)
[2018-10-07 13:04] LABS: ALBUMIN 2.2 g/dL (3.4-5.0); ANION GAP 13.6 mmol/L (8-16); BILIRUBIN - TOTAL 0.37 mg/dL (0.2-1.3); CALCIUM 8.7 mg/dL (8.5-10.1); CARBON DIOXIDE 27.3 mmol/L (21.0-32.0); CREATININE - SERUM 1.6 mg/dL (0.6-1.3); POTASSIUM - SERUM 4.9 mmol/L (3.5-5.1); PROTEIN - SERUM 6.8 g/dL (6.4-8.2)
[2018-10-07 13:05] LABS: PLATELET COUNT 300 10x3/uL (130-400)
[2018-10-07 14:57] LABS: KETONE - SERUM NEGATIVE (NEGATIVE)
[2018-10-07 15:28] LABS: MAGNESIUM - SERUM 2.1 mg/dL (1.8-2.4)
[2018-10-07 16:30] VITALS: BP 130/81
[2018-10-08] MEDS ORDERED: BACTRIM DS1 TAB PO (20:45)
== END 2018-10-07 16:32 | disposition home or self-care (01) ==
LOC: D.ER 11:50
PROVIDERS: Emergency Medicine
DX: E11.65 Type 2 diabetes mellitus with hyperglycemia (principal); Z79.4 Long term (current) use of insulin; R11.2 Nausea with vomiting, unspecified; R68.89 Other general symptoms and signs; E87.1 Hypo-osmolality and hyponatremia

== ENCOUNTER 2018-10-08 20:17 | Inpatient (IN) | payer MEDICAID ==
[2018-10-08 21:40] LABS: BASOPHILS 0.2 % (0-2); EOSINOPHILS 10.8 % (0-7); HEMATOCRIT 29.8 % (42.0-54.0); HEMOGLOBIN 10.1 g/dL (13.5-17.5); IMMATURE GRANULOCYTES 0.2 % (0-5); LYMPHOCYTES 9.4 % (15-50); MCHC 33.9 g/dL (31.0-37.0); MCV 94.3 fL (80.0-100.0); MEAN PLATELET VOLUME 9.6 fL (7.4-10.4); NEUTROPHILS 73.4 % (40-80); PLATELET COUNT 301 10x3/uL (130-400); RBC 3.16 10x6/uL (4.20-6.10); RDW 13.5 % (11.5-14.5)
[2018-10-08 21:41] LABS: WBC 12.7 10x3/uL (4.8-10.8)
[2018-10-08 21:47] LABS: KETONE - SERUM SMALL mg/dL (NEGATIVE)
[2018-10-08 21:50] LABS: ALKALINE PHOSPHATASE 127 U/L (46-116); BILIRUBIN - TOTAL 0.27 mg/dL (0.2-1.3); CALCIUM 8.6 mg/dL (8.5-10.1); CARBON DIOXIDE 22.7 mmol/L (21.0-32.0); CHLORIDE - SERUM 101 mmol/L (98-107); CREATININE - SERUM 1.4 mg/dL (0.6-1.3); POTASSIUM - SERUM 4.8 mmol/L (3.5-5.1); PROTEIN - SERUM 6.4 g/dL (6.4-8.2); SODIUM 133 mmol/L (136-145); eGFR NON AFRICAN AMERICAN 64 mL/min (90-120)
[2018-10-08 21:51] LABS: ALT (SGPT) 13 U/L (10-68); CALC OSMOLALITY 273 mosm/kg (275-300); GLUCOSE 257 mg/dL (74-106); UREA NITROGEN 10 mg/dL (7-18)
[2018-10-08 22:10] LABS: UDS - AMPHET NEGATIVE QUAL (NEGATIVE); UDS - BARB NEGATIVE QUAL (NEGATIVE); UDS - BENZO NEGATIVE QUAL (NEGATIVE); UDS - COCAINE NEGATIVE QUAL (NEGATIVE); UDS - OPIATE NEGATIVE QUAL (NEGATIVE); UDS - PCP NEGATIVE QUAL (NEGATIVE); UDS - THC NEGATIVE QUAL (NEGATIVE)
[2018-10-09 10:01] LABS: ANION GAP 25.5 mmol/L (8-16); CALCIUM 7.7 mg/dL (8.5-10.1); CARBON DIOXIDE 12.9 mmol/L (21.0-32.0); CREATININE - SERUM 1.7 mg/dL (0.6-1.3)
[2018-10-09 10:03] LABS: POTASSIUM - SERUM 6.4 mmol/L (3.5-5.1)
[2018-10-09 10:19] LABS: BASOPHILS 0.2 % (0-2); EOSINOPHILS 10.1 % (0-7); HEMATOCRIT 30.9 % (42.0-54.0); HEMOGLOBIN 10.2 g/dL (13.5-17.5); IMMATURE GRANULOCYTES 0.2 % (0-5); LYMPHOCYTES 8.4 % (15-50); MCH 31.9 pg (26.0-34.0); MEAN PLATELET VOLUME 10.5 fL (7.4-10.4); MONOCYTES 6.1 % (2-11); PLATELET COUNT 334 10x3/uL (130-400); RDW 14.1 % (11.5-14.5); WBC 12.7 10x3/uL (4.8-10.8)
[2018-10-09 10:20] LABS: MCV 96.6 fL (80.0-100.0)
[2018-10-10 03:23] LABS: BASOPHILS 0.2 % (0-2); EOSINOPHILS 11.3 % (0-7); HEMATOCRIT 27.2 % (42.0-54.0); HEMOGLOBIN 9.3 g/dL (13.5-17.5); IMMATURE GRANULOCYTES 0.3 % (0-5); LYMPHOCYTES 20.4 % (15-50); MCH 32.4 pg (26.0-34.0); MCHC 34.2 g/dL (31.0-37.0); MCV 94.8 fL (80.0-100.0); MEAN PLATELET VOLUME 9.3 fL (7.4-10.4); MONOCYTES 6.3 % (2-11); NEUTROPHILS 61.5 % (40-80); PLATELET COUNT 288 10x3/uL (130-400); RBC 2.87 10x6/uL (4.20-6.10); RDW 13.6 % (11.5-14.5); WBC 11.6 10x3/uL (4.8-10.8)
[2018-10-10 03:30] LABS: CALCIUM 8.5 mg/dL (8.5-10.1); CREATININE - SERUM 1.3 mg/dL (0.6-1.3); MAGNESIUM - SERUM 2.2 mg/dL (1.8-2.4); PHOSPHOROUS 3.4 mg/dL (2.5-4.9)
[2018-10-10 03:32] LABS: ANION GAP 12.9 mmol/L (8-16); CARBON DIOXIDE 23.3 mmol/L (21.0-32.0); POTASSIUM - SERUM 4.2 mmol/L (3.5-5.1)
[2018-10-11 05:07] LABS: BASOPHILS 0.1 % (0-2); EOSINOPHILS 12.5 % (0-7); HEMATOCRIT 29.3 % (42.0-54.0); HEMOGLOBIN 9.7 g/dL (13.5-17.5); IMMATURE GRANULOCYTES 0.3 % (0-5); LYMPHOCYTES 16.5 % (15-50); MCH 31.5 pg (26.0-34.0); MCHC 33.1 g/dL (31.0-37.0); MCV 95.1 fL (80.0-100.0); MEAN PLATELET VOLUME 9.4 fL (7.4-10.4); MONOCYTES 7.6 % (2-11); PLATELET COUNT 333 10x3/uL (130-400); RBC 3.08 10x6/uL (4.20-6.10); RDW 13.8 % (11.5-14.5)
[2018-10-11 05:24] LABS: CALC OSMOLALITY 273 mosm/kg (275-300); CALCIUM 8.9 mg/dL (8.5-10.1); CHLORIDE - SERUM 104 mmol/L (98-107); CREATININE - SERUM 1.1 mg/dL (0.6-1.3); GLUCOSE 99 mg/dL (74-106); SODIUM 137 mmol/L (136-145); UREA NITROGEN 12 mg/dL (7-18); eGFR NON AFRICAN AMERICAN 84 mL/min (90-120)
[2018-10-13 05:53] LABS: BASOPHILS 0.3 % (0-2); EOSINOPHILS 15.4 % (0-7); HEMATOCRIT 26.3 % (42.0-54.0); HEMOGLOBIN 8.6 g/dL (13.5-17.5); IMMATURE GRANULOCYTES 0.6 % (0-5); LYMPHOCYTES 26.7 % (15-50); MCH 31.4 pg (26.0-34.0); MCHC 32.7 g/dL (31.0-37.0); MEAN PLATELET VOLUME 9.3 fL (7.4-10.4); MONOCYTES 9.6 % (2-11); NEUTROPHILS 47.4 % (40-80); PLATELET COUNT 384 10x3/uL (130-400); RBC 2.74 10x6/uL (4.20-6.10); RDW 13.9 % (11.5-14.5)
[2018-10-13 06:44] LABS: ALBUMIN 1.5 g/dL (3.4-5.0); ALKALINE PHOSPHATASE 117 U/L (46-116); ALT (SGPT) 8 U/L (10-68); BILIRUBIN - TOTAL 0.09 mg/dL (0.2-1.3); CALC OSMOLALITY 288 mosm/kg (275-300); CALCIUM 8.1 mg/dL (8.5-10.1); CARBON DIOXIDE 25.6 mmol/L (21.0-32.0); CHLORIDE - SERUM 108 mmol/L (98-107); CREATININE - SERUM 0.9 mg/dL (0.6-1.3); GLUCOSE 112 mg/dL (74-106); POTASSIUM - SERUM 4.5 mmol/L (3.5-5.1); PROTEIN - SERUM 5.3 g/dL (6.4-8.2); SODIUM 144 mmol/L (136-145); UREA NITROGEN 15 mg/dL (7-18); eGFR NON AFRICAN AMERICAN > 90 mL/min (90-120)
[2018-10-14 03:11] LABS: B PARAPERTUSSIS DNA Negative (Negative); B PERTUSSIS DNA Negative (Negative)
== END 2018-10-13 13:44 | disposition home or self-care (01) | DRG 193 ==
LOC: D.ER 20:17 → D.M3 10-09 02:23 → D.ICU 10-09 11:10 → D.M2 10-11 16:17
PROVIDERS: Family Medicine; Family Medicine Adult Medicine; Internal Medicine Nephrology; Student in an Organized Health Care Education/Training Program
DX: J18.9 Pneumonia, unspecified organism (principal); E10.10 Type 1 diabetes mellitus with ketoacidosis without coma; J96.01 Acute respiratory failure with hypoxia; N17.9 Acute kidney failure, unspecified; F17.213 Nicotine dependence, cigarettes, with withdrawal; E10.43 Type 1 diabetes mellitus with diabetic autonomic (poly)neuropathy; K31.84 Gastroparesis; E87.5 Hyperkalemia; D50.9 Iron deficiency anemia, unspecified; Z91.19 Patient's noncompliance with other medical treatment and regimen